=== PATIENT | female | born 1965 | race Caucasian/White ===

== ENCOUNTER 2020-05-31 07:34 | Day surgery (SDC) | payer OTHER ==
[2020-05-29 17:15] VITALS: BMI 34.3
[2020-05-31] MEDS ORDERED: LIDOCAINE HCL/PF 2% SDV 5ML VIAL ONE (08:11)
[2020-05-31] MEDS ORDERED: PROPOFOL 20 ML ONE ×3 (08:11)
[2020-05-31 10:04] VITALS: BP 95/64; PULSE 64; TEMP 98
== END 2020-05-31 10:05 | disposition home or self-care (01) ==
LOC: FASU-ENDO 07:34
PROVIDERS: ATTEND Internal Medicine Gastroenterology
PROC: 0DJD8ZZ Inspection of Lower Intestinal Tract, Via Natural or Artificial Opening Endoscopic (ICD-10-PCS; principal; 2020-05-31 09:15)
DX: Z12.11 Encounter for screening for malignant neoplasm of colon (principal); K64.0 First degree hemorrhoids
CPT/HCPCS: 84703

== ENCOUNTER 2021-12-15 17:43 | Emergency (ER) | payer OTHER ==
[2021-12-15 18:07] VITALS: BP 119/85; PULSE 65; TEMP 98.2; BMI 33.9
== END 2021-12-15 19:37 | disposition home or self-care (01) ==
LOC: JER 17:43 → JERFT 17:43
DX: S81.852A Open bite, left lower leg, initial encounter (principal); W54.0XXA Bitten by dog, initial encounter
CPT/HCPCS: 99281-25

== ENCOUNTER 2024-02-26 17:39 | Emergency (ER) | payer OTHER ==
[2024-02-26 17:49] VITALS: BMI 34.3
[2024-02-26] MEDS ORDERED: ACETAMINOPHEN INJECTION 100 ML ONE (18:11)
[2024-02-26] MEDS ORDERED: FAMOTIDINE 20 MG/50 ML IVPB 20 MG/50 ML MG IVPB ONE (18:11)
[2024-02-26] MEDS ORDERED: ONDANSETRON 4 MG/2 ML VIAL ONE (18:11)
[2024-02-26] MEDS: ONDANSETRON 4 MG/2 ML VIAL IVPUSH ONE (18:15)
[2024-02-26] MEDS: SODIUM CHLORIDE 0.9% 1000 ML INFUS.BAG IV ONE (18:15)
[2024-02-26] MEDS: FAMOTIDINE 20 MG/50 ML IVPB 20 MG/50 ML MG IVPB ONE (18:22)
[2024-02-26 18:39] LABS: HEMATOCRIT 35.9 % (32.4-45.2); HEMOGLOBIN 11.5 G/dL (10.7-15.3); MCH 27.6 pg (25.7-33.7); MEAN CELL VOLUME 86.2 fl (80-96); PLATELET COUNT 292.6 10^3/uL (134-434); RBC 4.17 10^6/uL (3.60-5.2); RDW 14.1 % (11.6-15.6); WHITE BLOOD COUNT 8.9 10^3/uL (4.0-10.8)
[2024-02-26] MEDS: ACETAMINOPHEN 1000 MG/100 ML BAG IVPB ONE (18:40)
[2024-02-26 18:53] LABS: ALBUMIN 4.2 g/dl (3.4-5.0); BILIRUBIN,TOTAL 0.4 mg/dl (0.2-1); CALCIUM 9.7 mg/dl (8.5-10.1); CREATININE 0.7 mg/dl (0.6-1.3); TOT PROT 6.8 g/dl (6.4-8.2)
[2024-02-26 18:56] LABS: PLATELET ESTIMATE ADEQUATE
[2024-02-26 21:31] VITALS: BP 102/60; PULSE 74; RESP 17; TEMP 98
== END 2024-02-26 22:24 | disposition home or self-care (01) ==
LOC: FER 17:39
PROC: 3E033GC Introduction of Other Therapeutic Substance into Peripheral Vein, Percutaneous Approach (ICD-10-PCS; principal; 2024-02-26)
PROC: 3E033GC Introduction of Other Therapeutic Substance into Peripheral Vein, Percutaneous Approach (ICD-10-PCS; 2024-02-26)
PROC: 3E033NZ Introduction of Analgesics, Hypnotics, Sedatives into Peripheral Vein, Percutaneous Approach (ICD-10-PCS; 2024-02-26)
DX: R11.2 Nausea with vomiting, unspecified (principal); R50.9 Fever, unspecified; R10.13 Epigastric pain; Z20.822 Contact with and (suspected) exposure to COVID-19
CPT/HCPCS: 0241U-QW; 36415; 71046-TC-FY; 80053; 81003; 83690; 84484; 85027; 87086; 93005; 99285-25; J0131

== ENCOUNTER 2024-03-01 01:38 | Emergency (ER) | payer OTHER ==
[2024-03-01 01:44] VITALS: BP 122/90; PULSE 57; RESP 17; TEMP 99; BMI 34.3
[2024-03-01] MEDS ORDERED: ONDANSETRON 4 MG/2 ML VIAL IVPB ONE (01:48)
[2024-03-01] MEDS ORDERED: KETOROLAC TROMETHAMINE 30 MG/1 ML VIAL ONE (02:06)
[2024-03-01] MEDS ORDERED: ONDANSETRON 4 MG/2 ML VIAL ONE (02:06)
[2024-03-01] MEDS: SODIUM CHLORIDE 1,000 ML IV ONE (02:20)
[2024-03-01] MEDS: ONDANSETRON 4 MG/2 ML VIAL IVPB ONE (02:20)
[2024-03-01 02:32] LABS: HEMATOCRIT 35.6 % (32.4-45.2); HEMOGLOBIN 11.8 GM/dL (10.7-15.3); MCH 28.2 pg (25.7-33.7); MCHC 33.1 g/dl (32.0-36.0); MEAN CELL VOLUME 85.2 fl (80-96); MEAN PLT VOLUME 9.1 fl (7.5-11.1); PLATELET COUNT 290 10^3/uL (134-434); RBC 4.18 M/mm3 (3.60-5.2)
[2024-03-01 02:51] LABS: POTASSIUM 4.2 mmol/L (3.5-5.1)
[2024-03-01 02:53] LABS: ALBUMIN 3.6 g/dl (3.4-5.0); BLOOD UREA NITROGEN 11.1 mg/dL (7-18)
[2024-03-01 02:56] LABS: CREATININE 0.8 mg/dL (0.55-1.3)
[2024-03-01 02:58] LABS: BILIRUBIN,TOTAL 0.4 mg/dL (0.2-1); TOT PROT 7.1 g/dl (6.4-8.2)
[2024-03-01] MEDS: KETOROLAC TROMETHAMINE 30 MG/1 ML VIAL IVPUSH ONE (03:02)
== END 2024-03-01 06:42 | disposition home or self-care (01) ==
LOC: FER 01:38
PROC: 3E0333Z Introduction of Anti-inflammatory into Peripheral Vein, Percutaneous Approach (ICD-10-PCS; principal; 2024-03-01)
PROC: 3E033GC Introduction of Other Therapeutic Substance into Peripheral Vein, Percutaneous Approach (ICD-10-PCS; 2024-03-01)
PROC: 3E0337Z Introduction of Electrolytic and Water Balance Substance into Peripheral Vein, Percutaneous Approach (ICD-10-PCS; 2024-03-01)
DX: R10.11 Right upper quadrant pain (principal); R11.10 Vomiting, unspecified
CPT/HCPCS: 36415; 76705-TC; 80053; 83605; 83690; 83735; 85027; 99284-25